=== PATIENT | female | born 1995 | race Two or more races ===

== ENCOUNTER → 2020-08-23 | Outpatient (CLI) | payer OTHER | END | disposition home or self-care (01) | LOC: PRENATAL 09:24 | PROVIDERS: ATTEND Obstetrics & Gynecology Maternal & Fetal Medicine | DX: Z36.89 Encounter for other specified antenatal screening (principal); O36.80X1 Pregnancy with inconclusive fetal viability, fetus 1; Z3A.12 12 weeks gestation of pregnancy ==

== ENCOUNTER → 2020-10-18 | Outpatient (CLI) | payer OTHER | END | disposition home or self-care (01) | LOC: PRENATAL 08:59 | PROVIDERS: ATTEND Obstetrics & Gynecology Maternal & Fetal Medicine | DX: O35.0XX1 Maternal care for (suspected) central nervous system malformation in fetus, fetus 1 (principal); O35.3XX1 Maternal care for (suspected) damage to fetus from viral disease in mother, fetus 1; O98.512 Other viral diseases complicating pregnancy, second trimester; Z36.89 Encounter for other specified antenatal screening; Z3A.20 20 weeks gestation of pregnancy ==

== ENCOUNTER 2020-12-27 08:52 | Outpatient (CLI) | payer OTHER | END 2020-12-27 09:55 | disposition home or self-care (01) | LOC: PRENATAL 08:52 | PROVIDERS: ATTEND Obstetrics & Gynecology Maternal & Fetal Medicine | DX: O26.843 Uterine size-date discrepancy, third trimester (principal); Z36.89 Encounter for other specified antenatal screening; Z3A.30 30 weeks gestation of pregnancy ==

== ENCOUNTER → 2021-02-04 | Emergency (ER) | payer OTHER ==
[~2021-02-04] VITALS: Ht 154.9 cm; Wt 51.3 kg
== END | disposition home or self-care (01) ==
LOC: ER 17:08
DX: K64.4 Residual hemorrhoidal skin tags (principal); K62.5 Hemorrhage of anus and rectum

== ENCOUNTER 2021-02-17 14:00 | Inpatient (IN) | payer OTHER ==
[~2021-02-17] VITALS: Ht 154.9 cm; Wt 52.6 kg
[2021-02-26] MEDS ORDERED: PRENATAL TABLE1 EAC1 PO (07:40)
[2021-02-26] MEDS ORDERED: OMEGA ESSENTIA240 ML PO (07:40)
[2021-02-26] MEDS ORDERED: COLACE100 MG PO (07:41)
[2021-02-26] MEDS ORDERED: MIRALAX17 GM PO (07:41)
[2021-02-26] MEDS ORDERED: PROBIOTIC1 EAC2 PO (07:42)
== END 2021-02-28 16:02 | disposition home or self-care (01) | DRG 788 ==
LOC: LDR 02-26 02:29 → SURG-SUITE 02-26 02:29 → O/R 02-26 13:28 → SURG-SUITE 02-26 15:31 → SURH 03-04 14:00
PROVIDERS: ADMIT Obstetrics & Gynecology; ATTEND Obstetrics & Gynecology
PROC: 4A1HXFZ Monitoring of Products of Conception, Cardiac Rhythm, External Approach (ICD-10-PCS; 2021-02-26)
PROC: 10D00Z1 Extraction of Products of Conception, Low, Open Approach (ICD-10-PCS; principal; 2021-02-26 13:00)
DX: O62.1 Secondary uterine inertia (principal); O42.02 Full-term premature rupture of membranes, onset of labor within 24 hours of rupture; Z37.0 Single live birth; Z3A.39 39 weeks gestation of pregnancy

== ENCOUNTER 2022-06-06 07:57 | Outpatient (CLI) | payer OTHER ==
[~2022-06-06 07:57] MED LIST: COLACE100 MG PO; MIRALAX17 GM PO; OMEGA ESSENTIA240 ML PO; PRENATAL TABLE1 EAC1 PO; PROBIOTIC1 EAC2 PO
== END 2022-06-06 09:05 | disposition home or self-care (01) ==
LOC: PRENATAL 07:57
PROVIDERS: ATTEND Obstetrics & Gynecology Maternal & Fetal Medicine
DX: O36.80X0 Pregnancy with inconclusive fetal viability, not applicable or unspecified (principal); O34.219 Maternal care for unspecified type scar from previous cesarean delivery; Z3A.12 12 weeks gestation of pregnancy

== ENCOUNTER 2022-07-26 07:51 | Outpatient (CLI) | payer OTHER | END 2022-07-26 08:51 | disposition home or self-care (01) | LOC: PRENATAL 07:51 | PROVIDERS: ATTEND Obstetrics & Gynecology Maternal & Fetal Medicine | DX: O35.9XX0 Maternal care for (suspected) fetal abnormality and damage, unspecified, not applicable or unspecified (principal); Z3A.19 19 weeks gestation of pregnancy ==

== ENCOUNTER 2022-10-25 08:29 | Outpatient (CLI) | payer OTHER | END 2022-10-25 10:44 | disposition home or self-care (01) | LOC: PRENATAL 08:29 | PROVIDERS: ATTEND Obstetrics & Gynecology Maternal & Fetal Medicine | DX: O26.849 Uterine size-date discrepancy, unspecified trimester (principal); O35.3XX0 Maternal care for (suspected) damage to fetus from viral disease in mother, not applicable or unspecified; O36.8199 Decreased fetal movements, unspecified trimester, other fetus; O34.219 Maternal care for unspecified type scar from previous cesarean delivery; Z3A.32 32 weeks gestation of pregnancy ==

== ENCOUNTER 2022-11-20 08:27 | Outpatient (CLI) | payer OTHER | END 2022-11-20 10:33 | disposition home or self-care (01) | LOC: PRENATAL 08:27 | PROVIDERS: ATTEND Obstetrics & Gynecology Maternal & Fetal Medicine | DX: O26.849 Uterine size-date discrepancy, unspecified trimester (principal); O36.8199 Decreased fetal movements, unspecified trimester, other fetus; O34.219 Maternal care for unspecified type scar from previous cesarean delivery; Z3A.36 36 weeks gestation of pregnancy ==

== ENCOUNTER 2022-12-01 09:30 | Inpatient (IN) | payer OTHER ==
[~2022-12-01] VITALS: Ht 154.9 cm; Wt 52.2 kg
== END 2022-12-10 13:16 | disposition home or self-care (01) | DRG 788 ==
LOC: OB/GYN 12-08 07:00 → O/R 12-08 08:50 → OB/GYN 12-08 08:50
PROVIDERS: Obstetrics & Gynecology; ADMIT Student in an Organized Health Care Education/Training Program; ATTEND Student in an Organized Health Care Education/Training Program
PROC: 4A1HXCZ Monitoring of Products of Conception, Cardiac Rate, External Approach (ICD-10-PCS; 2022-12-08)
PROC: 10D00Z1 Extraction of Products of Conception, Low, Open Approach (ICD-10-PCS; principal; 2022-12-08 07:00)
DX: O34.211 Maternal care for low transverse scar from previous cesarean delivery (principal); Z3A.38 38 weeks gestation of pregnancy; Z37.0 Single live birth; Z20.822 Contact with and (suspected) exposure to COVID-19